=== PATIENT | male | born 1950 | race African-American/Black ===

== ENCOUNTER 2016-12-24 09:46 | Emergency (ER) | payer MEDICAID ==
[~2016-12-24] VITALS: Ht 177.8 cm; Wt 81.0 kg
[2016-12-24 12:53] VITALS: BP 132/98
== END 2016-12-24 13:20 | disposition home or self-care (01) ==
LOC: ER 11:26
DX: M13.861 Other specified arthritis, right knee (principal); F17.200 Nicotine dependence, unspecified, uncomplicated; Z91.013 Allergy to seafood; Z86.711 Personal history of pulmonary embolism; Z86.718 Personal history of other venous thrombosis and embolism
CPT/HCPCS: 73562; 93971; 99284; L1830

== ENCOUNTER 2018-02-01 11:05 | Emergency (ER) | payer MEDICARE, MEDICAID ==
[~2018-02-01] VITALS: Ht 177.8 cm; Wt 82.0 kg
[~2018-02-01 11:05] MED LIST: ASPI-1158 MT; ATOR40TA70 MT; CLOP75TA16 PO; METF500T6 MT; METO25TA6 PO; WARF-53 PO
[2018-02-01 11:27] VITALS: BP 111/66
== END 2018-02-01 13:11 | disposition home or self-care (01) ==
LOC: ER 12:09
DX: Z76.0 Encounter for issue of repeat prescription (principal); I25.2 Old myocardial infarction; I10 Essential (primary) hypertension; Z79.82 Long term (current) use of aspirin; Z87.891 Personal history of nicotine dependence; Z91.013 Allergy to seafood
CPT/HCPCS: 99281

== ENCOUNTER 2018-02-06 17:43 | Emergency (ER) | payer MEDICARE, MEDICAID ==
[~2018-02-06] VITALS: Ht 177.8 cm; Wt 83.4 kg
[2018-02-06] MEDS ORDERED: HYDROCODONE/ACETAMINOPHEN 10/325MG TABLET PO ONE (21:15)
[2018-02-06 21:33] VITALS: BP 125/87
== END 2018-02-06 21:33 | disposition home or self-care (01) ==
LOC: ER 17:43
DX: S33.5XXA Sprain of ligaments of lumbar spine, initial encounter (principal); M25.552 Pain in left hip; M25.551 Pain in right hip; I25.2 Old myocardial infarction; I11.9 Hypertensive heart disease without heart failure; Z98.890 Other specified postprocedural states; Z91.013 Allergy to seafood; Z87.828 Personal history of other (healed) physical injury and trauma; X58.XXXA Exposure to other specified factors, initial encounter; Y93.89 Activity, other specified; Y92.018 Other place in single-family (private) house as the place of occurrence of the external cause
CPT/HCPCS: 72170; 99283

== ENCOUNTER 2018-03-24 09:58 | Inpatient (IN) | payer MEDICARE, MEDICAID ==
[~2018-03-24] VITALS: Ht 175.3 cm; Wt 85.3 kg
[~2018-03-24 09:58] MED LIST changes: +APIX2.5T PO; -WARF-53 PO
[2018-03-24 12:58] LABS: BASOPHILS % 0.5 % (0.0-2.0); HEMATOCRIT. 40.5 % (42.0-52.0); HEMOGLOBIN. 13.6 g/dL (14.0-18.0); LYMPHOCYTES % 28.3 % (20.0-50.0); MEAN CORPUSCULAR VOLUME 83.7 fL (80.0-94.0); MEAN PLATELET VOLUME 8.6 fl (7.4-10.4); MONOCYTES % 6.9 % (2.0-8.0); NEUTROPHILS % 63.3 % (40.0-76.0); PLATELET 133 x1000/uL (130-400); RED BLOOD CELL COUNT 4.84 mill/uL (4.7-6.1); RED CELL DISTRIBUTION WIDTH 14.4 % (11.6-14.6)
[2018-03-24 13:09] LABS: CHLORIDE 107 mEq/L (98-107)
[2018-03-24 13:21] LABS: CLARITY URINE CLEAR (CLEAR); COLOR URINE YELLOW (YELLOW); KETONES URINE NEGATIVE (NEGATIVE); LEUKOCYTE ESTERASE URINE NEGATIVE (NEGATIVE); NITRITE URINE NEGATIVE (NEGATIVE); OCCULT BLOOD URINE NEGATIVE (NEGATIVE); PROTEIN URINE NEGATIVE (NEGATIVE); SPECIFIC GRAVITY URINE 1.016 (1.005-1.030)
[2018-03-24 13:59] LABS: *AMPHETAMINES SCREEN URINE NEGATIVE (NEGATIVE); *BARBITURATES SCREEN URINE NEGATIVE (NEGATIVE); *BENZODIAZEPINES SCREEN URINE NEGATIVE (NEGATIVE); *COCAINE SCREEN URINE NEGATIVE (NEGATIVE)
[2018-03-24 14:00] LABS: CANNABINOID URINE SCREEN NEGATIVE (NEGATIVE); METHADONE URINE SCREEN NEGATIVE (NEGATIVE); OPIATES URINE SCREEN NEGATIVE (NEGATIVE); PHENCYCLIDINE URINE SCREEN NEGATIVE (NEGATIVE)
[2018-03-24] MEDS ORDERED: MORPHINE SULFATE 4 MG/ML CPJ (NOT FOR IM USE) IV ONE (15:45)
[2018-03-24 21:21] VITALS: BP 176/72
[2018-03-24] MEDS ORDERED: CLONIDINE 0.1MG TABLET PO PRN (22:15)
[2018-03-24] MEDS ORDERED: MAGNESIUM/ALUMINUM HYDROXIDE/SIMETHICONE 30ML UDC PO PRN (22:15)
[2018-03-24] MEDS ORDERED: DOCUSATE SODIUM 100MG CAPSULE PO PRN (22:15)
[2018-03-24] MEDS ORDERED: HYDROCODONE/ACETAMINOPHEN 5/325MG TABLET PO PRN (22:15)
[2018-03-24] MEDS ORDERED: ONDANSETRON HCL 4MG/2ML INJ IV PRN (22:15)
[2018-03-24] MEDS ORDERED: ACETAMINOPHEN 325MG TABLET PO PRN (22:15)
[2018-03-24] MEDS ORDERED: IPRATROPIUM/ALBUTEROL 0.5-3(2.5)MG/3ML NEB INH PRN (22:15)
[2018-03-24 22:40] VITALS: BP 176/72
[2018-03-24 23:00] VITALS: BP 156/86
[2018-03-24 23:41] LABS: CHLORIDE 105 mEq/L (98-107)
[2018-03-25] VITALS (7 sets, daily range): BP systolic 112–171; BP diastolic 66–92
[2018-03-25 06:25] LABS: BASOPHILS % 0.2 % (0.0-2.0); EOSINOPHILS % 2.8 % (0.0-5.0); HEMATOCRIT. 38.2 % (42.0-52.0); HEMOGLOBIN. 12.9 g/dL (14.0-18.0); MEAN CORPUSCULAR HEMOGLOBIN 28.1 pg (28.0-32.0); MEAN CORPUSCULAR VOLUME 83.3 fL (80.0-94.0); MEAN PLATELET VOLUME 8.6 fl (7.4-10.4); MONOCYTES % 10.5 % (2.0-8.0); NEUTROPHILS % 63.5 % (40.0-76.0); PLATELET 139 x1000/uL (130-400); RED BLOOD CELL COUNT 4.59 mill/uL (4.7-6.1); RED CELL DISTRIBUTION WIDTH 14.2 % (11.6-14.6)
[2018-03-25 07:35] LABS: CREATINE KINASE 64 IU/L (39-308); CREATINE KINASE MB FRACTION < 1.0 ng/mL (0.5-3.6); HDL CHOLESTEROL 37 mg/dL (40-59); LDL CHOLESTEROL 110 mg/dL (5-100)
[2018-03-25] MEDS ORDERED: ENOXAPARIN 40MG/0.4ML SYR SUBCUT SCH (10:45)
[2018-03-25 16:24] LABS: CREATINE KINASE 54 IU/L (39-308); CREATINE KINASE MB FRACTION < 1.0 ng/mL (0.5-3.6)
[2018-03-25] MEDS: APIXABAN 5 MG TABLET PO SCH (19:36)
[2018-03-25] MEDS: ATORVASTATIN CALCIUM 40MG TABLET PO SCH (21:52)
[2018-03-25] MEDS: METOPROLOL TARTRATE 25MG TABLET PO SCH (21:56)
[2018-03-26] VITALS (7 sets, daily range): BP systolic 112–148; BP diastolic 70–99
[2018-03-26] MEDS ORDERED: DEXTROSE 50% WATER 50ML SYRINGE IV PRN (05:15)
[2018-03-26] MEDS: BLOOD SUGAR DIAGNOSTIC STRIP TEST SCH ×4 (06:37→21:00)
[2018-03-26] MEDS: INSULIN LISPRO 100 UNITS/ML SUBCUT SCH ×4 (07:15→21:00)
[2018-03-26] MEDS: METFORMIN HCL 500MG TABLET PO SCH ×2 (08:12→17:56)
[2018-03-26] MEDS: METOPROLOL TARTRATE 25MG TABLET PO SCH ×2 (08:13→21:07)
[2018-03-26] MEDS: ASPIRIN 81MG EC TABLET PO SCH (08:13)
[2018-03-26] MEDS: CLOPIDOGREL 75MG TABLET PO SCH (08:13)
[2018-03-26] MEDS: APIXABAN 5 MG TABLET PO SCH ×2 (08:13→17:55)
[2018-03-26] MEDS: ATORVASTATIN CALCIUM 40MG TABLET PO SCH (21:03)
[2018-03-27] VITALS: BP 121/62
[2018-03-27 04:00] VITALS: BP 120/70
[2018-03-27] MEDS: BLOOD SUGAR DIAGNOSTIC STRIP TEST SCH ×2 (06:16→11:44)
[2018-03-27] MEDS: INSULIN LISPRO 100 UNITS/ML SUBCUT SCH ×2 (06:17→13:12)
[2018-03-27 07:04] LABS: BASOPHILS % 0.4 % (0.0-2.0); EOSINOPHILS % 5.2 % (0.0-5.0); HEMATOCRIT. 38.7 % (42.0-52.0); HEMOGLOBIN. 12.8 g/dL (14.0-18.0); LYMPHOCYTES % 35.9 % (20.0-50.0); MEAN CORPUSCULAR HEMOGLOBIN 27.5 pg (28.0-32.0); MEAN CORPUSCULAR VOLUME 82.9 fL (80.0-94.0); MEAN PLATELET VOLUME 8.5 fl (7.4-10.4); MONOCYTES % 9.1 % (2.0-8.0); NEUTROPHILS % 49.4 % (40.0-76.0); PLATELET 176 x1000/uL (130-400); RED BLOOD CELL COUNT 4.67 mill/uL (4.7-6.1); RED CELL DISTRIBUTION WIDTH 14.1 % (11.6-14.6)
[2018-03-27 08:00] VITALS: BP 139/82
[2018-03-27 08:29] LABS: CHLORIDE 104 mEq/L (98-107)
[2018-03-27] MEDS: APIXABAN 5 MG TABLET PO SCH (08:44)
[2018-03-27] MEDS: ASPIRIN 81MG EC TABLET PO SCH (08:44)
[2018-03-27] MEDS: METFORMIN HCL 500MG TABLET PO SCH (08:44)
[2018-03-27] MEDS: METOPROLOL TARTRATE 25MG TABLET PO SCH (08:44)
[2018-03-27] MEDS: CLOPIDOGREL 75MG TABLET PO SCH (08:47)
[2018-03-27 09:01] LABS: CREATINE KINASE 40 IU/L (39-308); CREATINE KINASE MB FRACTION < 1.0 ng/mL (0.5-3.6)
[2018-03-27 12:00] VITALS: BP 138/80
[2018-03-27 14:34] VITALS: BP 138/80
== END 2018-03-27 15:30 | disposition home or self-care (01) | DRG 301 ==
LOC: ER 09:58 → 5WST 17:40 → ENRESERV 19:49
PROVIDERS: ADMIT Internal Medicine; ATTEND Internal Medicine
DX: I82.403 Acute embolism and thrombosis of unspecified deep veins of lower extremity, bilateral (principal); D69.6 Thrombocytopenia, unspecified; E11.51 Type 2 diabetes mellitus with diabetic peripheral angiopathy without gangrene; E78.00 Pure hypercholesterolemia, unspecified; E78.5 Hyperlipidemia, unspecified; I11.0 Hypertensive heart disease with heart failure; I25.10 Atherosclerotic heart disease of native coronary artery without angina pectoris; F41.9 Anxiety disorder, unspecified; I82.513 Chronic embolism and thrombosis of femoral vein, bilateral; I82.531 Chronic embolism and thrombosis of right popliteal vein; G89.29 Other chronic pain; M54.5 Low back pain; I50.9 Heart failure, unspecified; Z79.01 Long term (current) use of anticoagulants; Z79.02 Long term (current) use of antithrombotics/antiplatelets; Z79.84 Long term (current) use of oral hypoglycemic drugs; Z86.711 Personal history of pulmonary embolism; Z87.891 Personal history of nicotine dependence; Z95.5 Presence of coronary angioplasty implant and graft; Z91.013 Allergy to seafood; Z71.6 Tobacco abuse counseling; Z95.820 Peripheral vascular angioplasty status with implants and grafts; Z79.82 Long term (current) use of aspirin; Z79.899 Other long term (current) drug therapy; I25.2 Old myocardial infarction
CPT/HCPCS: 36415; 71045; 80048; 80053; 80061; 80305; 81003; 82550; 82553; 82962; 83036; 83605; 83735; 83880; 84443; 84484; 85025; 87040; 87086; 93005; 93923; 93970; 96374; 99285; J1650; J1815; J2270

== ENCOUNTER → 2019-04-04 | Outpatient (CLI) | payer MEDICARE, MEDICAID ==
[~2019-04-04] MED LIST changes: -CLOP75TA16 PO; +CLOP75TA4 PO; +METF-414 MT; -METF500T6 MT
== END | disposition home or self-care (01) ==
LOC: US 13:50
PROVIDERS: ATTEND Internal Medicine Geriatric Medicine
DX: N02.9 Recurrent and persistent hematuria with unspecified morphologic changes (principal); N28.1 Cyst of kidney, acquired
CPT/HCPCS: 76770